=== PATIENT | male | born 1990 | race Caucasian/White ===

== ENCOUNTER 2021-09-24 07:36 | Emergency (ER) | payer OTHER, SELFPAY ==
[2021-09-24 07:51] VITALS: BP 115/85; BP 121/87; PULSE 100; PULSE 91; RESP 18; TEMP 36.5; O2SAT 95; O2SAT 97; BMI 56.4
--- NOTE | 2021-09-24 07:59 | ED_ITS ---
HPI - General Adult General Chief complaint: General Medical Stated complaint: ANXIETY Time Seen by Provider: 09/24/21 07:51 History of Present Illness HPI narrative: Patient is a 31-year-old male presented today with a history of schizophrenia patient was at his apartment was worried about his sugar this morning. He has a history of diabetes patient took in a few extra candy last night. Worried his sugar was high. Had tingling sensation in both hands. Feels short of breath and unable to move although patient is awake alert at the time. He is on Eliquis for DVT and he claims compliance with medications. No fever no chills no coughing symptoms seems to have resolved. Sugar was checked by EMS to be 150. Patient has a history of anxiety as well. Related Data Allergies Allergy/AdvReac Type Severity Reaction Status Date / Time No Known Allergies Allergy Verified 09/24/21 07:56 Review of Systems Review of Systems: No fever no chills no cough no congestion or upper respiratory symptoms patient immunized for COVID Yes all other systems are reviewed and are negative [facility] Past Medical History Attestation statement: The following information was validated with the patient. Social History Social History Use of substances other than those prescribed or required for medical reasons: No Advance Directives: No Advance Directives Information Provided: Yes Physical Exam ED Vital Signs: Vital Signs - 24 hr 09/24/21 07:51 Temperature 97.7 F Pulse Rate 91 Respiratory Rate 18 Blood Pressure 121/87 Pulse Oximetry 95 BMI result Body Mass Index 56.4 Appearance: Alert. Oriented X3. No acute distress. Eyes: Pupils equal, round and reactive to light. ENT: Pharynx normal. Neck: Normal inspection. Neck supple. No lymph nodes noted. No crepitus CVS: Normal heart rate and rhythm. Pulses normal. Normal S1 and S2 Respiratory: No respiratory distress. Breath sounds normal. No Wheezing. No rales Abdomen: Soft and nontender. No rigidity. No distention. good BS x4 Skin: Skin warm and dry. Normal skin color. Normal skin turgor. Extremities: No lower extremity edema. Neurovascular intact to all extremities. No Lacerations. No Rash Neuro: Oriented X 3. No motor deficit. No sensory deficit. Moving all extermities. No slurred speech Medical Decision Making MDM Narrative Medical decision making narrative: Patient well appearing no acute distress electrolytes were normal EKG showed a sinus pattern heart rate was 75 NE QRS QTC within normal limits there is no acute ST segment elevation. He is in no distress his vital signs are normal question anxiety will discharge patient. Patient's sugar was less than 200 Lab Data Result diagrams: 09/24/21 08:31 09/24/21 08:31 Labs: Lab Results 09/24/21 09/24/21 Range/Units 08:31 08:31 WBC 12.2 H (4.8-10.8) X10*3/uL RBC 5.71 (4.60-5.80) X10*6/uL Hgb 15.3 (14.0-18.0) g/dl Hct 48.5 (42.0-52.0) % MCV 84.9 (80.0-98.0) fL MCH 26.8 L (27.0-33.0) pg MCHC 31.5 (31.0-36.0) g/dl RDW 14.0 (11.0-16.0) % Plt Count 261 (160-400) X10*3/uL MPV 9.7 (9.4-12.4) fL Immature Gran % (Auto) 0.6 H (0.0-0.4) % Neut % (Auto) 65.5 (45-73) % Lymph % (Auto) 28.1 (20-40) % Mcclain % (Auto) 4.8 (2-11) % Eos % (Auto) 0.8 (0-4) % Baso % (Auto) 0.2 (0-2) % Lymph # (Auto) 3.4 (1.2-4.9) X10*3/uL Mcclain # (Auto) 0.6 (0.1-1.2) X10*3/uL Eos # (Auto) 0.1 (0.0-0.4) X10*3/uL Baso # (Auto) 0.0 (0.0-0.2) X10*3/uL Abs Immat Gran (auto) 0.07 H (0.00-0.03) X10*3/uL Absolute Neuts (auto) 8.0 (2.0-8.3) x10*3/uL Absolute Nucleated RBC 0.000 (0.0-0.012) X10*3/uL Nucleated RBC % (auto) 0.0 (0.0-0.2) /100WBC Sodium 138 (135-145) mmol/L Potassium 4.3 (3.3-5.1) mmol/L Chloride 104 (96-108) mmol/L Carbon Dioxide 26 (22-29) mmol/L Anion Gap 12 (12-20) BUN 15 (9-16) mg/dL Creatinine 0.84 (0.5-1.4) mg/dL Estim Creat Clear Calc 217.9 Estimated GFR > 60 Random Glucose 151 H (60-115) mg/dL Calcium 8.9 (8.4-10.2) mg/dL Discharge Plan Discharge Clinical Impression: Anxiety Patient Disposition: Home, Self-Care Instructions: Anxiety (ED) Referrals: Margy Barnard NP [Primary Care Provider] - 2 days
--- NOTE | 2021-09-24 07:59 | ECG_ITS ---
Test Reason : CHEST PAIN Blood Pressure : / mmHG Vent. Rate : 089 BPM Atrial Rate : 089 BPM P-R Int : 162 ms QRS Dur : 088 ms QT Int : 360 ms P-R-T Axes : 021 080 029 degrees QTc Int : 438 ms Normal sinus rhythm Normal ECG No previous ECGs available Referred By: Shayy Yost Electronically Signed By:LORENA BRAR
[2021-09-24 08:35] LABS: MANUAL DIFF FLAG NO
[2021-09-24 08:46] LABS: Basophils Percent Auto 0.2 % (0-2); Eosinophils Absolute Auto 0.1 X10*3/uL (0.0-0.4); Eosinophils Percent Auto 0.8 % (0-4); Hematocrit 48.5 % (42.0-52.0); Hemoglobin 15.3 g/dl (14.0-18.0); Imm Gran Abs Auto 0.07 X10*3/uL (0.00-0.03); Imm Gran Pct Auto 0.6 % (0.0-0.4); Lymphocytes Absolute Auto 3.4 X10*3/uL (1.2-4.9); Lymphocytes Percent Auto 28.1 % (20-40); Mean Corpuscular HGB Conc 31.5 g/dl (31.0-36.0); Mean Corpuscular Hemoglobin 26.8 pg (27.0-33.0); Mean Corpuscular Volume 84.9 fL (80.0-98.0); Mean Platelet Volume 9.7 fL (9.4-12.4); Monocytes Absolute Auto 0.6 X10*3/uL (0.1-1.2); Monocytes Percent Auto 4.8 % (2-11); Neutrophils Percent Auto 65.5 % (45-73); Platelet Count 261 X10*3/uL (160-400); Red Blood Count 5.71 X10*6/uL (4.60-5.80); White Blood Count 12.2 X10*3/uL (4.8-10.8)
[2021-09-24 08:49] LABS: Anion Gap 12 (12-20); Blood Urea Nitrogen 15 mg/dL (9-16); Calcium 8.9 mg/dL (8.4-10.2); Carbon Dioxide 26 mmol/L (22-29); Chloride 104 mmol/L (96-108); Creatinine Clr Calc Pharmacy 217.9; Estimated Glomerular Filt Rate > 60; Glucose Random 151 mg/dL (60-115); Potassium 4.3 mmol/L (3.3-5.1); Sodium 138 mmol/L (135-145)
[2021-09-24 15:18] VITALS: BP 125/77; PULSE 87; RESP 17; TEMP 37.1; O2SAT 95
== END 2021-09-24 15:52 | disposition home or self-care (01) ==
PROVIDERS: Emergency Provider Emergency Medicine Emergency Medical Services; PCP Nurse Practitioner Family
DX: F41.9 Anxiety disorder, unspecified (principal); Z86.718 Personal history of other venous thrombosis and embolism; Z79.01 Long term (current) use of anticoagulants
CPT/HCPCS: 36415; 80048; 85025; 93005; 99283; 99284

== ENCOUNTER 2021-11-24 15:50 | Emergency (ER) | payer OTHER, SELFPAY ==
--- NOTE | ~2021-11-24 | US_ITS ---
EXAMINATION: US VENOUS ULTRASOUND WITH DOPPLER LOWER EXTREMITY, RIGHT CLINICAL INFORMATION: Leg pain COMPARISON: None TECHNIQUE: Ultrasound of the deep veins is performed from the hip to the calf with compression sonography and color and pulse Doppler assessment. Spectral analysis with color-flow imaging is performed. FINDINGS: There is normal venous compression and respiratory variation and augmented flow. The visualized common femoral vein, superficial femoral vein, profunda femoral vein, popliteal vein, and the trifurcation region shows no evidence of deep venous thrombosis. There is no significant popliteal fossa cyst. If the patient's symptoms persist, followup ultrasound in 5 days 7 days might be of value to exclude proximal propagation from a non-visualized calf vein. US/US venous duplex LE RT IMPRESSION: No DVT demonstrated in the right lower extremity.
--- NOTE | ~2021-11-24 | XR_ITS ---
EXAMINATION: XR hip RT w PEL1V CLINICAL INFORMATION: Reason for Exam R hip / lateral thigh pain COMPARISON: None TECHNIQUE: Two views of the hip. One view of the pelvis. XR/XR hip RT w PEL1V FINDINGS/IMPRESSION: * No acute fracture or dislocation. * Hip joint spaces are maintained without significant degenerative change. * No acute appreciable soft tissue abnormality.
[2021-11-24 16:27] VITALS: BP 141/82; PULSE 81; RESP 22; TEMP 36; O2SAT 95; BMI 56.9
--- NOTE | 2021-11-24 16:57 | ED.EXTPRO ---
HPI - Extremity Problem General Chief complaint: Extremity Injury, Lower Stated complaint: quest blood clot r hip Time Seen by Provider: 11/24/21 16:03 Source: patient Mode of arrival: ambulatory Limitations: no limitations History of Present Illness HPI Narrative: Patient presents to the emergency department for evaluation of pain to his right upper leg/hip. He reports that he has had a blood clot in this leg since 2011. He is currently prescribed Eliquis which he states he has been compliant with. Reports that the pain has been worse over the past 2 months, he reports that he was seen at [facility], within the last 2 months when he had an ultrasound performed and he was advised that he did not have a blood clot. Patient however is insists that there is a blood clot in his leg. He reports that he does a lot of walking, but walking and weight-bearing not seem to make the pain particularly worse. Pain is present to the right lateral hip and radiates down the lateral thigh. Denies numbness, tingling, chest pain, palpitations, shortness of breath, difficulty breathing nausea vomiting, abdominal pain. Pain Consistency: constant Location: right and lower extremity Radiation: none Relieving factors: nothing Exacerbating factors: nothing Associated symptoms: denies other symptoms Related Data Allergies Allergy/AdvReac Type Severity Reaction Status Date / Time No Known Allergies Allergy Verified 09/24/21 07:56 Review of Systems Review of Systems: Constitutional: No weight loss, fever, chills, weakness or fatigue. Skin: No rash or itching. Cardiovascular: No chest pain, chest pressure or chest discomfort. No palpitations or pedal edema. Respiratory: No shortness of breath, cough or sputum production. Gastrointestinal: No anorexia, nausea, vomiting or diarrhea. No abdominal pain or blood in stool. Genitourinary: No burning micturition. No urinary frequency or incontinence. Musculoskeletal: Positive right hip pain/leg pain Psychiatric: No depression or anxiety. Yes all other systems are reviewed and are negative PMFSH Past Medical History Attestation statement: The following information was validated with the patient. Source: old records reviewed Social History Social History Advance Directives: No Advance Directives Information Provided: Yes Physical Exam Vital Signs: Vital Signs: Last Vital Signs Temp 96.8 F 11/24/21 16:27 Pulse 81 11/24/21 16:27 Resp 22 H 11/24/21 16:27 BP 141/82 H 11/24/21 16:27 Pulse Ox 95 11/24/21 16:27 BMI result Body Mass Index 56.9 Vital signs have been reviewed as normal and appeared to be correct. Blood pressure normal.? Heart rate normal.? Respiration rate normal. Temperature normal.? Oxygen saturation normal. Appearance: Alert.?Oriented to person, place and time. No acute distress.?Normal affect. Eyes: Pupils equal, round and reactive to light.? ENT: Pharynx normal.?? Neck: Normal inspection.? Neck supple.?? CVS: Heart sounds normal. Normal heart rate and rhythm.? Pulses normal.?? Respiratory: No respiratory distress.? Lung sounds clear to auscultation bilaterally?? Abdomen: Soft and non-tender. Normoactive bowel sounds. ?? Skin: Skin warm and dry.? Normal skin color.? ?? Extremities: No lower extremity edema.? No calf ttp. Right hip/thigh with no erythema, warmth, swelling, rash. Full AROM to right hip and knee. With abduction of the right hip patient does report an increase in sharp pain down the right lateral thigh. Palpable 2+ DP/PT pulse bilaterally Neuro: Moves all extremities spontaneously. Sensation intact bilaterally. CN II-XII intact. No focal neuro deficits. Ambulates with normal steady gait. Course Course Course Narrative: Patient is a 31-year-old male with a past medical history of hypothyroidism, hypertension, type 2 diabetes, and pulmonary embolism/DVT currently on Eliquis. Presenting to the emergency department for evaluation of acute on chronic right hip/leg pain. Given patient's history of DVT/PE, will obtain ultrasound duplex of the right lower extremity, in addition to x-ray of the right hip and pelvis to evaluate for pathology of acute on chronic pain. He is overall well appearing, no apparent distress, resps a regular even and non-labored, lung sounds clear, he is ambulatory with a steady gait. Bilateral lower extremities without edema, erythema, warmth, palpable 2+ DP/PT pulses bilaterally. Not consistent with septic arthritis, cellulitis. Reevaluation(s) Reevaluation #1: instructional media services technician in the room performed room with duplex, patient yelling at the cardiac cath lab radiology technologist states that she isn't listening to him, he states his pain is on the lateral side of his leg and the data entry technician was using the ultrasound probe the medial side, patient getting very aggressive, yelling stating that he can see the blood clots in the ultrasound, although he is not even looking at the ultrasound screen during this time. Patient verbally de-escalated. US and XR results pending at this time Time: 17:30 Reevaluation #2: X-ray reveals no acute fracture or dislocation of the hip/ pelvis. The US of the right lower extremity does not demonstrate any DVT. Patient updated on findings at this time. Discussed with patient that his pain is likely secondary to a strain of the muscles in the leg, advised patient to rest, decrease amount of daily walking for a brief amount of time, advised to use Tylenol as needed for pain, he may apply ice or heat to the area. Advised outpatient follow-up with primary care provider as needed. Discussed reasons to return back to the emergency department. All questions were answered and he was discharged home in stable condition. Time: 18:16 MDM - Extremity (Nontraumatic) Medical Records Attestation: I reviewed the patient's medical records. Imaging Data Venous US: Radiologist's impression: US/US venous duplex LE RT IMPRESSION: No DVT demonstrated in the right lower extremity. hip XR: Radiologist's impression: XR/XR hip RT w PEL1V FINDINGS/IMPRESSION: ? *? No acute fracture or dislocation. ? *? Hip joint spaces are maintained without significant degenerative change. ? *? No acute appreciable soft tissue abnormality. Discharge Plan Discharge Clinical Impression: Strain of hip and thigh Patient Disposition: Home, Self-Care Instructions: Muscle Strain (ED), R.I.C.E. Treatment (ED) Additional Instructions: Your x-ray was normal. The ultrasound does not show blood clot in your leg. You can take ibuprofen 200 mg, 3 tablets (600mg) every 6-8 hours as needed for pain, in addition to Tylenol 500 mg, 2 tablets (1,000mg) every 4-6 hours as needed for pain, but not to exceed 3 doses daily (3,000mg).? Follow-up with your primary care provider as needed. Return to the emergency department with any new or worsening symptoms or concerns Referrals: Margy Barnard NP [Primary Care Provider] - Interventions: ED Discharge Assessment Last Done: 11/24/21 18:33 Discharge Date/Time: 11/24/21 18:34
== END 2021-11-24 18:34 | disposition home or self-care (01) ==
PROVIDERS: Emergency Provider Emergency Medicine; PCP Nurse Practitioner Family
DX: S76.911A Strain of unspecified muscles, fascia and tendons at thigh level, right thigh, initial encounter (principal); S79.911A Unspecified injury of right hip, initial encounter; R60.0 Localized edema; X58.XXXA Exposure to other specified factors, initial encounter; Y93.9 Activity, unspecified; Y92.9 Unspecified place or not applicable; Y99.9 Unspecified external cause status; Z79.01 Long term (current) use of anticoagulants; Z79.899 Other long term (current) drug therapy
CPT/HCPCS: 73502; 93971; 99283; 99284

== ENCOUNTER 2021-12-01 01:48 | Emergency (ER) | payer OTHER, SELFPAY ==
--- NOTE | ~2021-12-01 | XR_ITS ---
EXAMINATION: XR CHEST CLINICAL INFORMATION: Chest pain COMPARISON: None TECHNIQUE: Frontal view of the chest was obtained. FINDINGS: The lungs are hypoinflated. No focal consolidation is seen. No evidence of pneumothorax or significant pleural effusion. The cardiomediastinal contour is unremarkable. No acute osseous findings are seen. XR/XR chest 1V IMPRESSION: Low lung volumes without acute findings.
[2021-12-01 01:57] VITALS: BP 126/70; PULSE 72; O2SAT 97
[2021-12-01 02:02] VITALS: BP 124/67; PULSE 88; RESP 16; TEMP 36.6; O2SAT 93; BMI 56.9
--- NOTE | 2021-12-01 02:08 | ECG_ITS ---
Test Reason : CHEST PAIN Blood Pressure : / mmHG Vent. Rate : 083 BPM Atrial Rate : 083 BPM P-R Int : 152 ms QRS Dur : 096 ms QT Int : 358 ms P-R-T Axes : 019 074 039 degrees QTc Int : 420 ms Normal sinus rhythm Normal ECG When compared with ECG of 24-SEP-2021 08:01, No significant change was found Referred By: Generic ED Physician Electronically Signed By:Julito Mcfadden
--- NOTE | 2021-12-01 02:29 | ED_ITS ---
HPI - Chest Pain General Chief Complaint: Chest Pain Stated Complaint: CHEST TIGHTNESS Time Seen by Provider: 12/01/21 02:29 Source: patient Mode of arrival: EMS Limitations: no limitations History of Present Illness HPI narrative: Patient states he has clots but the US at [place] and [facility] were negative. patient is also having chest pain, tonight. Patient walked and then had chest pain while eating dinner. MD complaint: chest pain Onset (ago): hour(s) Timing of current episode: episodic Prior episodes: Yes Onset: during rest Pain location: left chest Severity: mild Quality: aching Relieving factors: nothing Exacerbating factors: exertion Risk Factors Coronary artery disease risk factors: hyperlipidemia and hypertension Related Data Allergies Allergy/AdvReac Type Severity Reaction Status Date / Time No Known Allergies Allergy Verified 09/24/21 07:56 Review of Systems Constitutional: Constitutional: Reports no additional constitutional complaint s Eyes: Eyes: Reports no additional eye complaints ENT: Denies dizziness Cardiovascular: Cardiovascular: Reports no additional cardiovascular complaints Respiratory: Respiratory: Reports as per HPI Gastrointestinal: Gastrointestinal: Reports no additional gastrointestinal complaints Musculoskeletal: Musculoskeletal: Reports no additional musculoskeletal complaints Integumentary/Breasts: Skin/Breast: Denies rash Neurologic: Reports system reviewed and no additional complaints, except as documented, Denies dizziness and Denies Sensory deficit (Neuro) Psychiatric: Psychiatric: Denies anxiety [facility] Social History Social History Advance Directives: No Advance Directives Information Provided: No Physical Exam Vital Signs: Vital Signs: Last Vital Signs Temp 98.2 F 12/01/21 02:48 Pulse 82 12/01/21 02:48 Resp 16 12/01/21 02:48 BP 128/60 12/01/21 02:48 Pulse Ox 94 12/01/21 02:48 BMI result Body Mass Index 56.9 Const: Other: obese male bizarre affect Orientation/consciousness: oriented to person and patient oriented x3 Limitations: no limitations HEENT: Head: Yes normal to inspection Ears: external ears normal General nose exam: Normal external nose present Mouth: Normal oral and palatal mucosa present and oropharynx normal Throat: Yes posterior oropharynx normal Eyes: General: appearance normal, both eyes and all related structures Neck: Other: supple Neck: Yes normal visual inspection Chest: Chest palpation & inspection: normal inspection of the chest Resp: Auscultation: clear to auscultation bilaterally Cardio: Jugular venous distension: no JVD Rate: regular rate Rhythm: regular rhythm Heart sounds: S1 normal heart sound present and S2 normal heart sound present GI: Inspection: Yes normal to inspection Palpation (GI): Soft to palpation, nontender and No hepatosplenomegaly present Auscultation: normal bowel sounds : General: Yes no CVA tenderness Back/Spine/Pelvis: Back: no CVA tenderness Skin: General skin exam: no rashes or lesions noted Neuro: General: oriented to person and patient oriented x3 Cranial nerves: Yes CN's II-XII intact bilaterally Motor exam (neuro): 5/5 motor strength present throughout Sensory Exam: No Sensory deficit (Neuro) Extrem: General: Yes normal to inspection Psych: Other: bizarre affect Course Reevaluation(s) Reevaluation #1: patient with a very atypical story, convinced he saw clots on his ultrasound through his own viewing of the US, EKG, CXR, labs and troponin all negative, will dc home Time: 03:38 MDM - Chest Pain Lab Data Result diagrams: 12/01/21 02:45 12/01/21 02:45 Labs: Lab Results 12/01/21 12/01/21 12/01/21 Range/Units 02:45 02:45 02:45 WBC 13.3 H (4.8-10.8) X10*3/uL RBC 5.73 (4.60-5.80) X10*6/uL Hgb 15.7 (14.0-18.0) g/dl Hct 47.4 (42.0-52.0) % MCV 82.7 (80.0-98.0) fL MCH 27.4 (27.0-33.0) pg MCHC 33.1 (31.0-36.0) g/dl RDW 13.7 (11.0-16.0) % Plt Count 286 (160-400) X10*3/uL MPV 9.6 (9.4-12.4) fL Immature Gran % (Auto) 0.3 (0.0-0.4) % Neut % (Auto) 61.9 (45-73) % Lymph % (Auto) 31.4 (20-40) % Heard % (Auto) 4.3 (2-11) % Eos % (Auto) 1.7 (0-4) % Baso % (Auto) 0.4 (0-2) % Lymph # (Auto) 4.2 (1.2-4.9) X10*3/uL Heard # (Auto) 0.6 (0.1-1.2) X10*3/uL Eos # (Auto) 0.2 (0.0-0.4) X10*3/uL Baso # (Auto) 0.1 (0.0-0.2) X10*3/uL Abs Immat Gran (auto) 0.04 H (0.00-0.03) X10*3/uL Absolute Neuts (auto) 8.2 (2.0-8.3) x10*3/uL Absolute Nucleated RBC 0.000 (0.0-0.012) X10*3/uL Nucleated RBC % (auto) 0.0 (0.0-0.2) /100WBC Sodium 137 (135-145) mmol/L Potassium 4.3 (3.3-5.1) mmol/L Chloride 102 (96-108) mmol/L Carbon Dioxide 25 (22-29) mmol/L Anion Gap 14 (12-20) BUN 13 (9-16) mg/dL Creatinine 1.05 (0.5-1.4) mg/dL Estim Creat Clear Calc 175.3 Estimated GFR > 60 Random Glucose 138 H (60-115) mg/dL Calcium 9.1 (8.4-10.2) mg/dL Troponin I High Sens < 3.5 (<3.5-35.0) ng/L Imaging Data Chest x-ray: Radiologist's impression: FINDINGS: The lungs are hypoinflated. No focal consolidation is seen. No evidence of pneumothorax or significant pleural effusion. The cardiomediastinal contour is unremarkable. No acute osseous findings are seen. XR/XR chest 1V IMPRESSION: Low lung volumes without acute findings. ? ECG Data ECG #1: Attestation: I personally reviewed and interpreted this ECG as follows: Interpretation: normal sinus rate of 80, no st or twave changes Discharge Plan Discharge Clinical Impression: Atypical chest pain Patient Disposition: Home, Self-Care Instructions: Noncardiac Chest Pain (ED) Referrals: Margy Barnard NP [Primary Care Provider] - 1 week
[2021-12-01 02:48] VITALS: BP 128/60; PULSE 82; RESP 16; TEMP 36.8; O2SAT 94
[2021-12-01 02:49] LABS: MANUAL DIFF FLAG NO
[2021-12-01 02:59] LABS: Basophils Absolute Auto 0.1 X10*3/uL (0.0-0.2); Basophils Percent Auto 0.4 % (0-2); Eosinophils Absolute Auto 0.2 X10*3/uL (0.0-0.4); Eosinophils Percent Auto 1.7 % (0-4); Hematocrit 47.4 % (42.0-52.0); Hemoglobin 15.7 g/dl (14.0-18.0); Imm Gran Abs Auto 0.04 X10*3/uL (0.00-0.03); Imm Gran Pct Auto 0.3 % (0.0-0.4); Lymphocytes Absolute Auto 4.2 X10*3/uL (1.2-4.9); Lymphocytes Percent Auto 31.4 % (20-40); Mean Corpuscular HGB Conc 33.1 g/dl (31.0-36.0); Mean Corpuscular Hemoglobin 27.4 pg (27.0-33.0); Mean Corpuscular Volume 82.7 fL (80.0-98.0); Mean Platelet Volume 9.6 fL (9.4-12.4); Monocytes Absolute Auto 0.6 X10*3/uL (0.1-1.2); Monocytes Percent Auto 4.3 % (2-11); Neutrophils Absolute Auto 8.2 x10*3/uL (2.0-8.3); Neutrophils Percent Auto 61.9 % (45-73); Platelet Count 286 X10*3/uL (160-400); Red Blood Count 5.73 X10*6/uL (4.60-5.80); Red Cell Distribution Width 13.7 % (11.0-16.0); White Blood Count 13.3 X10*3/uL (4.8-10.8)
[2021-12-01 03:08] LABS: Anion Gap 14 (12-20); Blood Urea Nitrogen 13 mg/dL (9-16); Calcium 9.1 mg/dL (8.4-10.2); Carbon Dioxide 25 mmol/L (22-29); Chloride 102 mmol/L (96-108); Creatinine Clr Calc Pharmacy 175.3; Estimated Glomerular Filt Rate > 60; Glucose Random 138 mg/dL (60-115); Potassium 4.3 mmol/L (3.3-5.1); Sodium 137 mmol/L (135-145)
[2021-12-01 03:10] LABS: Troponin-I High Sensitivity < 3.5 ng/L (<3.5-35.0)
--- NOTE | 2021-12-01 03:16 | PC.NURSE ---
at bedside for primary eval.
--- NOTE | 2021-12-01 03:50 | PC.NURSE ---
This RN at bedside to DC pt, pt noted to be irrate over discharge, yelling at this RN I'M STILL HAVING CP, CAN I GET SOME NITROGLYCERIN AND A REAL DOCTOR? This RN discussing with MD Baca the plan of care, per MD to call security and have pt escorted out. Pt provided with his DC paperwork and escorted out by security.
== END 2021-12-01 03:51 | disposition home or self-care (01) ==
PROVIDERS: Emergency Provider Emergency Medicine; PCP Nurse Practitioner Family
DX: R07.89 Other chest pain (principal); I10 Essential (primary) hypertension; E78.5 Hyperlipidemia, unspecified
CPT/HCPCS: 36415; 71045; 80048; 84484; 85025; 93005; 99283; 99284

== ENCOUNTER 2022-11-09 13:14 | Emergency (ER) | payer OTHER, SELFPAY ==
[2022-11-09] VITALS (7 sets, daily range): BP systolic 104–148; BP diastolic 62–81; PULSE 77–100; RESP 14–24; TEMP 36.5–36.6; O2SAT 85–100; BMI 54.2
--- NOTE | ~2022-11-09 | XR_ITS ---
EXAMINATION: XR CHEST CLINICAL INFORMATION: Cough. COMPARISON: Chest radiograph 12/01/2021. TECHNIQUE: 2 views of the chest were obtained. FINDINGS: Low lung volumes with diffuse peribronchial thickening versus bronchovascular crowding. No focal consolidation, pleural effusion or pneumothorax. No significant cardiomediastinal contour abnormality. No acute osseous findings. XR/XR chest 2V IMPRESSION: Low lung volumes limiting assessment of parenchymal details. There is mild peribronchial thickening versus bronchovascular crowding, in this context reactive airway disease or atypical/viral infections are not excluded. No focal consolidation. Clear pleural spaces.
--- NOTE | 2022-11-09 13:31 | ED.OVERDOSE ---
HPI - Overdose General Chief Complaint: Overdose Stated Complaint: OD,10 MG NARCAN IM Source: patient Mode of arrival: EMS History of Present Illness HPI Narrative: 32-year-old male brought in by EMS for overdose. Denies SI, declining detox. Related Data Home Medications Medication Instructions Recorded Confirmed No Known Home Meds 11/09/22 11/09/22 Allergies Allergy/AdvReac Type Severity Reaction Status Date / Time No Known Allergies Allergy Verified 09/24/21 07:56 Review of Systems Review of Systems: Pertinent positives and negatives as stated in HPI PMFSH Past Medical History Source: nursing notes reviewed Social History Social History Alcohol intake: never Smoked in Last 30 Days: No Use of substances other than those prescribed or required for medical reasons: No Advance Directives: No Advance Directives Information Provided: Yes Physical Exam Vital Signs: Vital Signs: Last Vital Signs Temp 97.7 F 11/09/22 14:34 Pulse 88 11/09/22 18:50 Resp 20 11/09/22 18:50 BP 127/72 11/09/22 18:50 Pulse Ox 96 11/09/22 18:50 O2 Del Method Room Air 11/09/22 18:50 O2 Flow Rate 4 11/09/22 16:47 BMI result Body Mass Index 54.2 VITAL SIGNS: Reviewed. GENERAL: Elevated BMI, Well developed, well nourished, in no acute distress. HEAD: Normocephalic/atraumatic EYES: PERRLA, EOMI LUNGS: Normal breath sounds. No adventitious sounds or accessory muscle use. SpO2<100> CARDIOVASCULAR: Regular rate and rhythm without noted murmurs ABDOMEN: Soft, non-tender, non-distended with bowel sounds. MUSCULOSKELETAL: No tenderness, deformities, or effusions noted on gross inspection. EXTREMITIES: No cyanosis, clubbing or edema. SKIN: Inspection of the skin reveals no rashes NEUROLOGIC: Alert and oriented x 3. Strength and sensation to light touch were grossly intact x 4. Medications Administered Discontinued Medications Generic Name Dose Route Start Last Admin Trade Name Freq PRN Reason Stop Dose Admin Albuterol Sulfate 2 puff 11/09/22 17:58 11/09/22 18:12 Albuterol Sulfate 90 Mcg 8 Gm Inhaler INHALE 11/09/22 17:59 2 puff ONCE ONE Administration Naloxone HCl 4 mg 11/09/22 13:34 11/09/22 15:37 Naloxone Hcl Nasal Take Home 4 Mg [place] NOSTRILALT 11/09/22 13:35 4 mg ONCE ONE Administration Ondansetron HCl 4 mg 11/09/22 14:17 11/09/22 14:34 Ondansetron Odt 4 Mg Tab.Rapdis TRANSLINGU 11/09/22 14:18 4 mg ONCE ONE Administration Ondansetron HCl 4 mg 11/09/22 15:31 11/09/22 15:37 Ondansetron Hcl 4 Mg/2 Ml Vial IVPUSH 11/09/22 15:32 4 mg ONCE ONE Administration Medical Decision Making Medical Decision Making MDM Narrative: 32-year-old male brought in by EMS when he was found unresponsive, required supportive respirations and 10 mg of Narcan IM. Patient denies SI and is declining detox. Drugs found on patient as well as knife which were turned over to security. Patient will be observed for 2 hours and discharged with home Narcan. Patient was quite sleepy and was experiencing some requirements for supplemental oxygen, I performed a chest x-ray and my interpretation is in agreement with radiology impression, patient provided with 2 puffs Ventolin inhaler and on further observation has been able to maintain room air oxygenation at greater than 94%. He is otherwise clinically stable for discharge to home with home Narcan. Differential Diagnosis Please see the discussion above Radiology Impression Radiologist Impression: My interpretation is in agreement with radiology's impression of the imaging studies. Discharge Plan Discharge Clinical Impression: Overdose Patient Disposition: Home, Self-Care Instructions: Adult Overdose (ED) Additional Instructions: 1. You have been discharged with home Narcan. 2. Please follow-up with your primary care provider. Return to the ER for any worsening symptoms. Prescriptions: No Action No Known Home Meds
--- NOTE | 2022-11-09 13:54 | PC.NURSE ---
pt states that he has hx of sleep apnea. pt given 02 at 2l/m via n/c. aware.
--- NOTE | 2022-11-09 13:56 | PC.NURSE ---
increase 02 to 3l/m via n/c.
--- NOTE | 2022-11-09 13:59 | PC.NURSE ---
o2 increase to 4l/m via n/c. 02 93% on 4l/m via n/c.
[2022-11-09] MEDS: Ondansetron ODT 4 MG TAB.RAPDIS TRANSLINGU (14:34)
--- NOTE | 2022-11-09 14:59 | PC.NURSE ---
report received from [facility] [place] Pt is sleeping at this time, respirations even and unlabored, skin pwd, no apparent distress. O2 97% on 4L at this time. Plan to titrate as necessary
[2022-11-09] MEDS: Naloxone HCl Nasal TAKE HOME 4 MG SPRAY NOSTRILALT (15:37)
[2022-11-09] MEDS: ondansetron HCL 4 MG/2 ML VIAL IVPUSH (15:37)
--- NOTE | 2022-11-09 15:39 | PC.NURSE ---
pt continuing to vomit, Zofran given IM per MAR per MD Escamilla
--- NOTE | 2022-11-09 15:56 | HO.SUDE ---
This internal communications writer met w/ patient, patient resting, awake to verbal command. Patient reports has not used illicit opiates since a teenager. Patient reports as a teenager, occasional [place] use of illicit opiate pills. Patient reports currently is living at a [facility] facility. When leaving the facility, saw a heroin bag with a stamp on it and licked it to find out for the community what is out there in the street . Patient states it tasted synthetic and bitter, then blacked out and woke up to ambulance. Patient reports does not use opiates. Patient states current medications include insulin, patient reports no history of MAT or treatment for CATHY. Patient reports no history of overdose. Harm reduction, opiate overdose prevention reviewed. Reviewed [facility] available to test drugs, patient reports has fentanyl test strips at home. Patient encouraged to utilyze [facility] drug testing and fentanyl stips if in the future feels impulse and curiosity to test heroin bag. Patient declined recovery supports left at bedside. Patient verbalized understanding.
--- NOTE | 2022-11-09 16:31 | PC.NURSE ---
PO CHALLENGE GIVEN
--- NOTE | 2022-11-09 17:49 | PC.NURSE ---
pt remains in the ED at this time, sleeping, respirations equal and unlabored, skin pwd. Normal sinus 80s on the monitor, requiring 3L NC to maintain O2 above 94%. Awaiting chest xray and new MD orders at this time
[2022-11-09] MEDS: Albuterol Sulfate 90 MCG 8 GM INHALER 2 PUFF INHALE (18:12)
--- NOTE | 2022-11-09 18:15 | PC.NURSE ---
pt removed from O2 and given Ventolin per MAR respirations remain equal and unlabored and O2 remains above 95%. Pt now up and eating sandwich. Awaiting new orders at this time
== END 2022-11-09 19:36 | disposition home or self-care (01) ==
PROVIDERS: Emergency Provider Student in an Organized Health Care Education/Training Program
DX: R40.4 Transient alteration of awareness (principal); T50.901A Poisoning by unspecified drugs, medicaments and biological substances, accidental (unintentional), initial encounter; Y92.410 Unspecified street and highway as the place of occurrence of the external cause
CPT/HCPCS: 71046; 96372; 99285; J2405